=== PATIENT | female | born 1985 | race African-American/Black ===

== ENCOUNTER 2016-12-31 08:45 | Emergency (ER) | payer OTHER ==
[~2016-12-31] VITALS: Ht 162.6 cm; Wt 104.3 kg
[~2016-12-31 08:45] MED LIST: ACYCLOVIR 800800 M1 PO; BACTRIM DS TAB1 EACH PO; DIFLUCAN150 MG PO; FLAGYL500 MG PO; IBUPROFEN 600600 M1 PO; MACROBID 100 M100 M1 PO; NOHOMEMEDICATIONS; NORCO 5-325 TA1 EACH PO; ZOFRAN4 MG PO
[2016-12-31] MEDS ORDERED: BACTRIM DS TAB1 EACH PO (11:36)
[2016-12-31] MEDS ORDERED: IBUPROFEN 800800 M1 PO (11:39)
[2016-12-31 12:05] VITALS: BP 168/54
== END 2016-12-31 12:08 | disposition home or self-care (01) ==
LOC: ER 08:45
DX: L02.11 Cutaneous abscess of neck (principal); F17.210 Nicotine dependence, cigarettes, uncomplicated; F10.99 Alcohol use, unspecified with unspecified alcohol-induced disorder; Z88.0 Allergy status to penicillin

== ENCOUNTER 2017-03-11 08:22 | Emergency (ER) | payer OTHER ==
[~2017-03-11] VITALS: Ht 162.6 cm; Wt 95.3 kg
[~2017-03-11 08:22] MED LIST changes: +IBUPROFEN 800800 M1 PO
[2017-03-11 08:23] VITALS: BP 117/84
[2017-03-11] MEDS ORDERED: CLEOCIN HCL150 MG PO (08:41)
== END 2017-03-11 08:55 | disposition home or self-care (01) ==
LOC: ER 08:22
DX: K02.9 Dental caries, unspecified (principal); Z88.0 Allergy status to penicillin; Z87.891 Personal history of nicotine dependence

== ENCOUNTER 2017-08-26 07:59 | Emergency (ER) | payer OTHER ==
[~2017-08-26] VITALS: Ht 162.6 cm; Wt 90.7 kg
[~2017-08-26 07:59] MED LIST changes: +CLEOCIN HCL150 MG PO
[2017-08-26 08:19] LABS: URINE BILIRUBIN NEGATIVE (Negative); URINE BLOOD 1+ (Negative); URINE CLARITY CLEAR; URINE COLOR YELLOW; URINE GLUCOSE-RANDOM* NEGATIVE (Negative); URINE KETONES NEGATIVE (Negative); URINE LEUKOCYTES-REFLEX NEGATIVE (Negative); URINE NITRITE-REFLEX NEGATIVE (Negative); URINE PROTEIN (DIPSTICK) NEGATIVE (Negative); URINE SPECIFIC GRAVITY >= 1.030 (1.005-1.035); URINE UROBILINOGEN 0.2 E.U./dl (0.2-1.0)
[2017-08-26 08:24] LABS: SQUAMOUS >10 Many /LPF (0-3)
[2017-08-26 08:25] LABS: BACTERIA-REFLEX 1-9 Few /HPF (None Seen); CASTS None Seen /LPF (None Seen); CRYSTALS None Seen /LPF (None Seen); URINE RBC 0-2 Rare /HPF (0-2); URINE WBC-REFLEX 0-5 Rare /HPF (0-5)
[2017-08-26 09:34] LABS: BASOPHILS 0.8 % (0.0-2.0); EOSINOPHILS 0.7 % (0.0-3.0); HEMOGLOBIN 10.3 gm/dL (12.0-15.0); LYMPHOCYTES 30.7 % (24.0-44.0); MCH 24.8 pg (26.0-34.0); MCHC 31.2 g/dL (28.0-37.0); MCV 79.5 fL (80.0-100.0); MONOCYTES 8.1 % (1.0-8.0); PLATELET COUNT 402 thou/uL (150-400); POLYS 59.7 % (36.0-66.0); RBC 4.15 mil/uL (4.20-5.00); RDW 15.2 % (10.5-14.5); WBC 8.4 thou/uL (4.0-11.0)
[2017-08-26 09:41] LABS: ANION GAP 9 mmol/L (7-16); BUN 9 mg/dL (7-18); CALCIUM 9.1 mg/dL (8.5-10.1); CHLORIDE 104 mmol/L (98-107); CO2 26 mmol/L (21-32); CREATININE 0.9 mg/dL (0.6-1.0); GLUCOSE 110 mg/dL (74-106); POTASSIUM 3.7 mmol/L (3.5-5.1); SODIUM 139 mmol/L (136-145)
[2017-08-26 09:47] LABS: ALBUMIN 3.3 g/dL (3.4-5.0); DIRECT BILIRUBIN < 0.1 mg/dL (<0.1-0.3); LIPASE 78 U/L (73-393); SGOT 24 U/L (15-37); SGPT 21 U/L (30-65); TOTAL BILIRUBIN 0.2 mg/dL (<0.1-1.0); TOTAL PROTEIN 7.8 g/dL (6.4-8.2)
[2017-08-26] MEDS ORDERED: FLAGYL500 MG PO (09:51)
[2017-08-26 10:29] VITALS: BP 134/81
[2017-08-27 14:10] LABS: NEISSERIA GONORRHEA-PCR Negative (Negative)
== END 2017-08-26 10:30 | disposition home or self-care (01) ==
LOC: ER 07:59
PROVIDERS: Emergency Medicine
DX: N76.0 Acute vaginitis (principal); Z87.891 Personal history of nicotine dependence; Z88.0 Allergy status to penicillin

== ENCOUNTER 2017-10-30 16:08 | Emergency (ER) | payer OTHER ==
[~2017-10-30] VITALS: Ht 162.6 cm; Wt 95.3 kg
--- NOTE | ~2017-10-30 | EKG ---
[address] [address] ELECTROCARDIOGRAM REPORT Name: FARMERLONNIECurtis Room #: [facility]..#: [id number] Admission: Attend Phys: Discharge: Date of : 83 Report #: [id number] THIS REPORT FOR: //name// [facility] ED Test Date: 2017-10-30 Test Time: 16:16:06 Pat Name: LONNIE FARMER Department: Room: Gender: F [employer] Professor: KELSEA : 1985 Requested By: Mariela Fitzgerald Order Number: [id number] MD: Measurements Intervals [place] Rate: 80 P: 59 NC: 145 QRS: 36 QRSD: 81 T: 19 QT: 382 QTc: 441 Interpretive Statements Sinus rhythm Compared to ECG 03/24/2013 17:05:10 Sinus arrhythmia no longer present [email or web address] By: 15 15 Maria Esther Mayo MD /EPI
[2017-10-30 16:12] VITALS: BP 121/74
[2017-10-30 16:25] LABS: URINE BILIRUBIN NEGATIVE (Negative); URINE BLOOD 2+ (Negative); URINE CLARITY CLEAR; URINE COLOR YELLOW; URINE GLUCOSE-RANDOM* NEGATIVE (Negative); URINE KETONES TRACE (Negative); URINE LEUKOCYTES-REFLEX NEGATIVE (Negative); URINE NITRITE-REFLEX NEGATIVE (Negative); URINE PROTEIN (DIPSTICK) TRACE (Negative); URINE SPECIFIC GRAVITY >= 1.030 (1.005-1.035); URINE UROBILINOGEN 0.2 E.U./dl (0.2-1.0)
[2017-10-30 16:31] LABS: BACTERIA-REFLEX 1-9 Few /HPF (None Seen); SQUAMOUS 0-3 Few /LPF (0-3); URINE RBC 3-10 Few /HPF (0-2); URINE WBC-REFLEX None Seen /HPF (0-5)
[2017-10-30 16:32] LABS: CASTS None Seen /LPF (None Seen); CRYSTALS None Seen /LPF (None Seen); MUCUS 0-3 Light strn/LPF (None Seen)
[2017-10-30] MEDS ORDERED: KEFLEX500 M1 PO (17:20)
== END 2017-10-30 17:49 | disposition home or self-care (01) ==
LOC: ER 16:08
PROVIDERS: Nurse Practitioner Family
DX: N76.0 Acute vaginitis (principal); Z87.891 Personal history of nicotine dependence; Z88.0 Allergy status to penicillin